=== PATIENT | male | born 1980 | race Caucasian/White ===

== ENCOUNTER 2024-10-12 19:53 | Emergency (ER) | payer BC ==
--- NOTE | 2024-10-12 20:35 | ED ---
General Adult HPI - General Chief complaint: Nausea/Vomiting/Diarrhea Stated complaint: Headache,Dizziness Time Seen by Provider: 10/12/24 20:14 Source: patient Mode of arrival: wheelchair Limitations: no limitations - History of Present Illness Initial comments: 43-year-old male presenting with chief complaint of headache. Patient reports that throughout the week he has had a right-sided toothache along with a dull headache. States that these were bothersome pains that he was able to work through to complete his ADLs. States that at 6:30pm while he was waiting to mushroom picker a pizza he had a sudden onset worst headache of his life. He has also had multiple episodes of nausea and vomiting. He admits to some dizziness. Denies any vision disturbances. He takes no blood thinners. Denies any chronic health conditions. Previous smoker, he quit 1 month ago. - Related Data Previous Rx's Medication Instructions Recorded Amoxic-Pot Clav 875-125Mg 1 tab PO Q12HR 10 Days #20 tab 10/13/24 [Augmentin 875-125] HYDROcodone/APAP 7.5-325MG [[place] 1 tab PO Q6HR PRN 3 Days #12 tab 10/13/24 7.5-325] Ondansetron Odt [Zofran Odt] 4 mg PO Q8HR PRN #20 tab 10/13/24 Allergies Allergy/AdvReac Type Severity Reaction Status Date / Time No Known Allergies Allergy Verified 10/12/24 20:05 Review of Systems ROS Statement: Those systems with pertinent positive or pertinent negative responses have been documented in the HPI. ROS Other: All systems not noted in ROS Statement are negative. Past Medical History Past Medical History: No Reported History History of Any Multi-Drug Resistant Organisms: None Reported Past Surgical History: Back Surgery Past Psychological History: No Psychological Hx Reported Smoking Status: Never smoker Past Alcohol Use History: Rare Past Drug Use History: None Reported General Exam Limitations: no limitations General appearance: alert, in no apparent distress Head exam: Present: atraumatic, normocephalic, normal inspection Eye exam: Present: normal appearance, PERRL, EOMI. Absent: periorbital swelling Pupils: Present: normal accommodation Neck exam: Present: normal inspection. Absent: meningismus Respiratory exam: Absent: respiratory distress Cardiovascular Exam: Present: tachycardia Extremities exam: Present: normal inspection, full ROM Neurological exam: Present: alert, oriented X3 Expanded Patient oriented to: Present: person, place, time Speech: Present: fluid speech Cranial nerves: EOM's Intact: Normal Cerebellar function: Finger to Nose: Normal, Heel to Lemus: Normal Motor strength exam: RUE: 5, LUE: 5, RLE: 5, LLE: 5 Eye Response: (4) open spontaneously Motor Response: (6) obeys commands Verbal Response: (5) oriented Aracely Total: 15 Psychiatric exam: Present: normal affect, normal mood Skin exam: Present: warm, dry, normal color Course Vital Signs 10/12/24 10/12/24 10/12/24 20:06 21:30 22:06 Temperature 97.8 F Pulse Rate 115 H 81 57 L Respiratory 22 16 16 Rate Blood Pressure 168/90 208/137 167/105 O2 Sat by Pulse 95 Oximetry 10/12/24 10/13/24 23:37 01:04 Temperature 98.3 F Pulse Rate 64 73 Respiratory 16 18 Rate Blood Pressure 164/102 157/96 O2 Sat by Pulse 95 98 Oximetry Medical Decision Making - Medical Decision Making Was pt. sent in by a medical professional or institution (Dr. PA, WEIGHER ALLOY, urgent care, hospital, or fpc...) When possible be specific @ -No Did you speak to anyone other than the patient for history (EMS, parent, family, police, friend...)? What history was obtained from this source @ -Patient's significant other Did you review nursing and triage notes (agree or disagree)? Why? @ -I reviewed and agree with nursing and triage notes Were old charts reviewed (outside hosp., previous admission, EMS record, old EKG, old radiological studies, urgent care reports/EKG's, fpc records)? Report findings @ -No old charts were reviewed Differential Diagnosis (chest pain, altered mental status, abdominal pain women, abdominal pain men, vaginal bleeding, weakness, fever, dyspnea, syncope, headache, dizziness, GI bleed, back pain, seizure, CVA, palpatations, mental health, musculoskeletal)? @ -[facility] Differential Headache: Migraine, tension, cluster, carbon monoxide, central venous thrombosis, pension karma temporal arteritis, acute closure glaucoma, intercranial hemorrhage, mastoiditis, sinusitis, head injury this is not meant to be an all-inclusive list. EKG interpreted by me (3pts min.). @ -As above X-rays interpreted by me (1pt min.). @ -None CT interpreted by me (1pt min.). @ -CTA of the head and neck shows no evidence of dissection of the cervical internal carotid arteries or vertebral arteries the evidence of significant stenosis at the carotid bifurcations. No evidence of intracranial high-grade stenosis or intracranial aneurysm. Please note that the bilateral internal carotid arteries are diminutive in caliber bilaterally in addition to the right posterior cerebral artery which may relate to patient's variant anatomy. however there is somewhat limited evaluation for gross abnormalities. These vessels are grossly patent. Periodontal disease involving the maxillary left second molar which appears to have some erosive changes. No periapical abscess at this time. Bilateral submandibular enlarged lymph nodes likely reactive CT shows no acute intracranial process U/S interpreted by me (1pt. min.). @ -None done What testing was considered but not performed or refused? (CT, X-rays, U/S, labs)? Why? @ -None What meds were considered but not given or refused? Why? @ -None Did you discuss the management of the patient with other professionals (cruz gonzalez i.e. , PA, [employer]IGHER ALLOY, lab, RT, psych nurse, vp digital marketing social media and crm, mid level game designer, teacher, chief mechanical officer, case therapist)? Give summary @ -No Was smoking cessation discussed for >3mins.? @ -No Was critical care preformed (if so, how long)? @ -No Were there social determinants of health that impacted care today? How? (Homelessness, low income, unemployed, alcoholism, drug addiction, transportation, low edu. Level, literacy, decrease access to med. care, fpc, rehab)? @ -No Was there de-escalation of care discussed even if they declined (Discuss DNR or withdrawal of care, Hospice)? DNR status @ -No What co-morbidities impacted this encounter? (DM, HTN, Smoking, COPD, CAD, Cancer, CVA, ARF, Chemo, Hep., AIDS, mental health diagnosis, sleep apnea, morbid obesity)? @ -None Was patient admitted / discharged? Hospital course, mention meds given and route, prescriptions, significant lab abnormalities, going to OR and other pertinent info. @ -43-year-old male presenting with chief complaint of headache. Patient has had a toothache and headache throughout the week which severely worsened nata ght. History and physical examination are conducted. White count is 17.1. This may be reactive due to the patient's vomiting, however the patient may also have dental infection. There is no aneurysm or high-grade stenosis seen on CT of the head and neck and no acute process seen on CT of the brain without contrast. There is periodontal disease seen with no abscess. Patient is treated with pain and nausea medication as well as IV fluids and antihypertensives. On reassessment he reports significant improvement in his pain. Patient wishes to be discharged home. He is educated on today's findings and management plan as well as return parameters. Sent home with Augmentin, Zofran, and [place]. Follow-up with PCP. Report back to ER with any new or worsening symptoms. Discussed return parameters and answered all questions. Patient conveyed verbal understanding and agreed to the plan. I discussed this case in detail with my attending Dr. Melendez Undiagnosed new problem with uncertain prognosis? @ -No Drug Therapy requiring intensive monitoring for toxicity (Heparin, Nitro, Insuli n, Cardizem)? @ -No Were any procedures done? @ -No Diagnosis/symptom? @ -Headache Acute, or Chronic, or Acute on Chronic? @ -Acute Uncomplicated (without systemic symptoms) or Complicated (systemic symptoms)? @ -Complicated Side effects of treatment? @ -No Exacerbation, Progression, or Severe Exacerbation? @ -No Poses a threat to life or bodily function? How? (Chest pain, [place], [place], pneumonia, PE, COPD, DKA, ARF, appy, cholecystitis, CVA, Diverticulitis, Homicidal, Suicidal, threat to staff... and all critical care pts) @ -Low likelihood Diagnosis/symptom? @Periodontal disease Acute, or Chronic, or Acute on Chronic? @Acute on chronic Uncomplicated (without systemic symptoms) or Complicated (systemic symptoms)? @Complicated Side effects of treatment? @None Exacerbation, Progression, or Severe Exacerbation] @No Poses a threat to life or bodily function? @Low likelihood - Lab Data Result diagrams: 10/12/24 21:04 10/12/24 21:04 Lab Results 10/12/24 10/12/24 10/12/24 Range/Units 21:04 21:04 21:04 WBC 17.1 H (3.8-10.6) k/uL RBC 5.36 (4.30-5.90) m/uL Hgb 15.6 (13.0-17.5) gm/dL Hct 46.8 (39.0-53.0) % MCV 87.3 (80.0-100.0) fL MCH 29.1 (25.0-35.0) pg MCHC 33.3 (31.0-37.0) g/dL RDW 12.6 (11.5-15.5) % Plt Count 314 (150-450) k/uL MPV 7.7 Neutrophils % 79 % Lymphocytes % 14 % Monocytes % 5 % Eosinophils % 0 % Basophils % 0 % Neutrophils # 13.6 H (1.3-7.7) k/uL Lymphocytes # 2.3 (1.0-4.8) k/uL Monocytes # 0.9 (0-1.0) k/uL Eosinophils # 0.1 (0-0.7) k/uL Basophils # 0.1 (0-0.2) k/uL Sodium 136 L (137-145) mmol/L Potassium 4.0 (3.5-5.1) mmol/L Chloride 102 (98-107) mmol/L Carbon Dioxide 26 (22-30) mmol/L Anion Gap 8 mmol/L BUN 17 (9-20) mg/dL Creatinine 0.68 (0.66-1.25) mg/dL Est GFR (CKD-EPI)AfAm >90 (>60 ml/min/1.73 sqM) Est GFR (CKD-EPI)NonAf >90 (>60 ml/min/1.73 sqM) Glucose 122 H (74-99) mg/dL Plasma Lactic Acid Douglas 1.7 (0.7-2.0) mmol/L Calcium 8.9 (8.4-10.2) mg/dL Total Bilirubin 0.6 (0.2-1.3) mg/dL AST 22 (17-59) U/L ALT 12 (4-49) U/L Alkaline Phosphatase 84 (38-126) U/L Total Protein 7.8 (6.3-8.2) g/dL Albumin 4.7 (3.5-5.0) g/dL Disposition Clinical Impression: Periodontal disease, Headache Disposition: HOME SELF-CARE Condition: Good Instructions (If sedation given, give patient instructions): Acute Headache (ED), Periodontal Disease (DC) Additional Instructions: Follow-up with your dentist and PCP. Report back to ER with any new or worsening symptoms. Take medication as prescribed. Prescriptions: Amoxic-Pot Clav 875-125Mg [Augmentin 875-125] 1 tab PO Q12HR 10 Days #20 tab HYDROcodone/APAP 7.5-325MG [[place] 7.5-325] 1 tab PO Q6HR PRN 3 Days #12 tab PRN Reason: Pain Ondansetron Odt [Zofran Odt] 4 mg PO Q8HR PRN #20 tab PRN Reason: Nausea Is patient prescribed a controlled substance at d/c from ED?: Yes When asked, does pt state using other controlled substances?: No If prescribed controlled substance>3 days was MAPS reviewed?: Prescribed <3 Days If opioid is for acute pain is fill amount 7 days or less?: Yes Referrals: None,Stated [Primary Care Provider] - 1-2 days Time of Disposition: 00:40
[2024-10-12] MEDS: ONDANSETRON 4 MG/2 ML VIAL IVP STA (20:55)
[2024-10-12] MEDS: MORPHINE SULFATE 4 MG/ML SYRINGE IVP STA (20:56)
[2024-10-12] MEDS: SODIUM CHLORIDE 0.9% 1,000 ML IV ONE (21:00)
[2024-10-12 21:42] LABS: Basophils # (A) 0.1 k/uL (0-0.2); Basophils % (A) 0 %; Eosinophils # (A) 0.1 k/uL (0-0.7); Eosinophils % (A) 0 %; HCT 46.8 % (39.0-53.0); HGB 15.6 gm/dL (13.0-17.5); Lymphocytes # (A) 2.3 k/uL (1.0-4.8); Lymphocytes % (A) 14 %; MCH 29.1 pg (25.0-35.0); MCHC 33.3 g/dL (31.0-37.0); MCV 87.3 fL (80.0-100.0); Mean Platelet Volume 7.7; Monocytes # (A) 0.9 k/uL (0-1.0); Monocytes % (A) 5 %; Neutrophils # (A) 13.6 k/uL (1.3-7.7); Neutrophils % (A) 79 %; Platelet Count 314 k/uL (150-450); RBC 5.36 m/uL (4.30-5.90); RDW 12.6 % (11.5-15.5); WBC 17.1 k/uL (3.8-10.6)
[2024-10-12] MEDS: LABETALOL 5 MG/ML VIAL MDV IVP STA (21:42)
[2024-10-12] MEDS: HYDROmorphone 1 MG/ML 1 ML SYRINGE IVP STA (21:43)
[2024-10-12 21:53] LABS: ALT 12 U/L (4-49); AST 22 U/L (17-59); African American GFR (CKD) >90 (>60 ml/min/1.73 sqM); Albumin 4.7 g/dL (3.5-5.0); Alkaline Phosphatase 84 U/L (38-126); Anion Gap 8 mmol/L; Blood Urea Nitrogen 17 mg/dL (9-20); Calcium 8.9 mg/dL (8.4-10.2); Carbon Dioxide 26 mmol/L (22-30); Chloride 102 mmol/L (98-107); Glucose 122 mg/dL (74-99); Non-African American GFR(CKD) >90 (>60 ml/min/1.73 sqM); Sodium 136 mmol/L (137-145); Total Bilirubin 0.6 mg/dL (0.2-1.3); Total Protein 7.8 g/dL (6.3-8.2)
[2024-10-12] MEDS: METOCLOPRAMIDE 5 MG/ML 2 ML VIAL IVP STA (22:05)
--- NOTE | 2024-10-12 22:14 | CT ---
EXAMINATION TYPE: CT brain wo con CT DLP: 1244 mGycm, Automated exposure control for dose reduction was used. DATE OF EXAM: 10/12/2024 9:31 PM COMPARISON: CTA head from the same day. CLINICAL INDICATION:Male, 43 years old with history of headache, Pt presents with a tooth ache for th e past 3 days, today pt felt hot and cold, fatigue, vomiting, worst headache of his life. TECHNIQUE: Brain: Axial CT images of the brain were obtained with coronal and sagittal reformats created and rev iewed. Contrast used: None. Oral contrast used: None. FINDINGS: Brain: Extra-axial spaces: No abnormal extra-axial fluid collections. Calcification noted in the pineal glan d as well as in the area of the quadrigeminal cistern. Ventricular system: Within normal limits Cerebral parenchyma: No acute intraparenchymal hemorrhage or mass effect. The dorsey-white junction is well differentiated. Cerebellum: Unremarkable. Mass effect: No evidence of midline shift. Intracranial vasculature: unremarkable Soft tissues: Normal. Calvarium/osseous structures: No depressed skull fracture. Paranasal sinuses and mastoid air cells: Mild scattered paranasal sinus disease. Visualized orbits: Orbital contents are intact. IMPRESSION: No acute intracranial process. [facility], , 10/12/2024 10:12 PM
--- NOTE | 2024-10-12 22:36 | CT ---
EXAMINATION TYPE: CT angio head neck CT DLP: 1088 mGycm, Automated exposure control for dose reduction was used. DATE OF EXAM: 10/12/2024 9:31 PM COMPARISON: CT head from the same day. CLINICAL INDICATION:Male, 43 years old with history of headache; PHH, Pt presents with a tooth ache f or the past 3 days, today pt felt hot and cold, fatigue, vomiting, worst headache of his life. TECHNIQUE: Axially acquired helical CT angiogram of the head and neck was obtained with contrast. Axi al images are supplemented with 3D reconstructions and MIP images which were post-processed at an in dependent workstation. NASCET criteria used. Contrast used:65 mL mL of Isovue 370 with IV Contrast, Oral contrast used: None. FINDINGS: CTA HEAD: Please see separate CT head noncontrasted study for further details. The visualized portions of the internal carotid arteries, middle cerebral arteries, anterior cerebral arteries, and posterior cerebral arteries are patent. The right posterior cerebral artery is diminut denis in size which limits evaluation but appears grossly patent. There is left posterior circula tion. The right posterior commuting artery is hypoplastic. The basilar and vertebral arteries are patent. Other: Periapical lucencies are seen involving the left maxillary second molar with suggested cortical break through. No adjacent organized fluid collection seen at this time. Additionally there are multiple bi lateral submandibular enlarged lymph nodes measuring up to 1.3 cm in short axis along the right side and 1.1 cm in short axis along the left side. CTA NECK: Right Carotid System: The common carotid artery and external carotid artery are patent. The carotid bifurcation demonstrate s no evidence of hemodynamically significant stenosis. The remaining portions of the internal carotid artery is diminutive without significant narrowing. Left Carotid System: The common carotid artery and external carotid artery are patent. The carotid bifurcation demonstrate s no evidence of hemodynamically significant stenosis. The remaining portions of the internal carotid artery is diminutive without significant narrowing. Vertebral arteries are patent without evidence hemodynamically significant stenosis. There is a three-vessel aortic arch. The origins of the great vessels are patent. No evidence of hemo dynamically significant stenosis. Upper thorax: The lungs are clear. Sub-5 mm right thyroid lobe hypodense focus likely representing a cyst. Fat filled nonenlarged lymph nodes are seen in the bilateral axilla. IMPRESSION: 1. No evidence of dissection of the cervical internal carotid arteries or vertebral arteries or any e vidence of significant stenosis at the carotid bifurcations. 2. No evidence of intracranial high-grade stenosis or intracranial aneurysm. Please note that the bi lateral internal carotid arteries are diminutive in caliber bilaterally in addition to the right post erior cerebral artery which may relate to patient's variant anatomy however there is somewhat limited evaluation for gross abnormalities. These vessels are grossly patent. 3. Periodontal disease involving the maxillary left second molar which appears to have some erosive c hanges. No periapical abscess at this time. 4. Bilateral submandibular enlarged lymph nodes likely reactive. [facility], , 10/12/2024 10:34 PM
[2024-10-12] MEDS: KETOROLAC 15 MG/ML 1 ML VIAL IVP STA (23:35)
[2024-10-13] MEDS: AMOXIC-POT CLAV 875-125MG 1 EACH TAB PO STA (00:15)
[2024-10-13] MEDS: DEXAMETHASONE SOD PHOSPHATE 10 MG/ML 1 ML VIAL IV STA (00:16)
[2024-10-13] MEDS: hydrALAZINE HCL 20 MG/ML 1 ML VIAL IVP STA (00:57)
[2024-10-13 01:05] VITALS: BP 157/96; PULSE 73; RESP 18; TEMP 98.3
== END 2024-10-13 01:05 | disposition home or self-care (01) ==
LOC: EC 19:53
DX: K05.6 Periodontal disease, unspecified (principal)
CPT/HCPCS: 36415; 80053; 83605; 85025; 70496; 70450; 70498; 99284; 96374; 96375; 96361; J2270; J2765; J2405; J1171; J1885; Q9967; J1920